=== PATIENT | male | born 1980 ===

== ENCOUNTER 2018-10-23 21:18 | Emergency (ER) | payer OTHER ==
[~2018-10-23] VITALS: Ht 167.6 cm; Wt 72.6 kg
[~2018-10-23 21:18] MED LIST: NO DOZ200 MG
== END 2018-10-23 23:10 | disposition home or self-care (01) ==
LOC: ER 21:18
DX: S61.241A Puncture wound with foreign body of left index finger without damage to nail, initial encounter (principal); W26.8XXA Contact with other sharp object(s), not elsewhere classified, initial encounter; Y93.89 Activity, other specified; Y92.89 Other specified places as the place of occurrence of the external cause; Y99.8 Other external cause status